=== PATIENT | male | born 1950 | race Caucasian/White ===

== ENCOUNTER 2016-10-23 15:39 | Observation (INO) | payer MEDICARE ==
[~2016-10-23] VITALS: Ht 188 cm; Wt 84.6 kg
--- NOTE | ~2016-10-23 | HEMODYNAMI ---
PATIENT:FADI GOMEZ MEDICAL RECORD: [id number] : 52 [id number] ADMISSION DATE: 10/23/16 Generatedon:10/24/201612:38 Patient name: FADI GOMEZ Patient #: [id number] SSN: : 1950 Date of study: 10/24/2016 Page: Of Hemodynamic Procedure Report Patient Data Patient Demographics Procedure consent was obtained First Name: FADI Gender: Male Last Name: PATRICIA : 1950 Middle Initial: M Age: 66 year(s) Patient #: [id number] Race: Additional ID: [id number] Contact details [address]: [address] [place] [address] State: [place] City: [place] Zip code: [address] Past Medical History Allergies: No known allergies Admission Admission Data Admission Date: 10/23/2016 Admission Time: 18:15 Admit Source: Other Insurance Payor: Medicare Room #: D.2114 Height (in.): 74 BSA: 2.13 (m2) Height (cm.): 187.96 BMI: 24.44 (kg/m2) Weight (lbs.): 190.39 Weight (kg.): 86.36 Lab Results Lab Result Date: 10/24/2016 Lab Result Time: 0:00 Biochemistry Name Units Result Min Max BUN mg/dl 24 --(----)-* 7 18 Creatinine mg/dl 0.7 --(*---)-- 0.6 1.3 CBC Name Units Result Min Max Hemoglobin g/dl 14.5 --(*---)-- 13.5 17.5 Procedure Procedure Types Cath Procedure Diagnostic Procedure [facility] w/Coronaries PCI Procedure Coronary Stent Initial Miscellaneous Procedures Moderate Sedation up to 15 minutes Procedure Description Procedure Date Procedure Date: 10/24/2016 Procedure Start Time: 12:23 Procedure End Time: 12:38 Procedure Staff Name Function Blaine Reaves MD Performing Physician Page Aguirre RT Scrub Silverio Wilkins RN Nurse Ania Hadley RT Monitor Procedure Data Cath Procedure Fluoroscopy Diagnostic fluoroscopy Total fluoroscopy Time: 2.6 time: 2.6 min min Diagnostic fluoroscopy Total fluoroscopy dose: 335 dose: 335 mGy mGy Contrast Material Contrast Material Type Amount (ml) Isovue 300 64 Entry Location Entry Primary Successful Side Size Upsize Upsize Entry Closure Mclaughlin ccessful Closure Location (Fr) 1 (Fr) 2 (Fr) Remarks Device Remarks Radial Right 6 Fr Mechanical artery Short Compression Estimated blood loss: 10 ml Diagnostic catheters Device Type Used For End Catheter Placement Diagnostic Terumo 5Fr LV Angiography Bradshaw 110cm catheter Diagnostic Terumo 5Fr Left Coronary Bradshaw 110cm catheter Angiography Diagnostic Terumo 5Fr Right Coronary Bradshaw 110cm catheter Angiography Procedure Complications No complications Procedure Medications Medication Administration Route Dosage Oxygen NC 2 l/min Heparin Flush Bag added to field 2 bags (1000units/500ml NS) 0.9% NaCl I.V. ml/hr Radial Cocktail added to field 1 syringe (Verapomil 2mg/Nitro 400mcg/Heparin 1500units) Fentanyl I.V. 50 mcg Versed I.V. 1 mg Fentanyl I.V. 50 mcg Versed I.V. 1 mg Radial Cocktail I.A. 1 syringe (Verapomil 2mg/Nitro 400mcg/Heparin 1500units) Heparin Bolus I.V. 4000 units Integrilin (Bolus I.V. 7.9 ml 2mg/ml) Integrilin (Bolus wasted 2.1 ml 2mg/ml) Plavix P.O. 600 mg Hemodynamics Rest BSA: 2.13 (m2) HGB: 14.5 (g/dl) O2 Consumption: Estimated: 230.15 (ml/min) O2 Co nsumption indexed: Estimated:108.05 (ml/min/m) Heart Rate: 47 (bpm) Snapshots Pre Cath Intra NCS Post Cath Vital Signs Time Heart Resp SPO2 NIBP (mmHg) Rhythm Pain Sedation Rate (ipm) (%) Status Level (bpm) 12:10:06 42 16 98 155/83(136) NSR 0 (11) 10(A) , No pain 12:14:14 52 20 99 144/89(105) NSR 0 (11) 10(A) , No pain 12:18:28 51 16 100 139/81(102) NSR 0 (11) 10(A) , No pain 12:22:42 50 17 97 130/78(96) NSR 0 (11) 9(A) , No pain 12:26:56 58 19 95 102/67(93) NSR 0 (11) 9(A) , No pain 12:31:00 56 19 94 120/67(84) NSR 0 (11) 9(A) , No pain 12:35:10 55 18 97 105/70(84) NSR 0 (11) 9(A) , No pain Medications Time Medication Route Dose Verified Delivered Reason Note s Effectiveness by by 12:14:49 Oxygen NC 2 l/min Silverio Sawyer Per physician Franky Wilkins RN RN 12:14:58 Heparin Flush added 2 bags Silverio Haquey used for Bag to Franky Wilkins RN procedure (1000units/500ml field RN NS) 12:15:05 0.9% NaCl I.V. ml/hr Silverio Sawyer Per physician Franky Wilkins RN RN 12:15:13 Radial Cocktail added 1 Silverio Haquey used for (Verapomil to syringe Franky Wilkins RN procedure 2mg/Nitro field RN 400mcg/Heparin 1500units) 12:17:01 Fentanyl I.V. 50 mcg Silverio Silverio for sedation Franky Wilkins RN RN 12:17:06 Versed I.V. 1 mg Silverio Silverio for sedation Franky Wilkins RN RN 12:23:38 Fentanyl I.V. 50 mcg Silverio Islverio for sedation Franky Wilkins RN RN 12:23:43 Versed I.V. 1 mg Silverio Silverio for sedation Franky Wilkins RN RN 12:25:00 Radial Cocktail I.A. 1 Silverio Ayonrey for (Verapomil syringe Franky Reaves MD vasodilation 2mg/Nitro RN 400mcg/Heparin 1500units) 12:31:47 Heparin Bolus I.V. 4000 Silverio Sawyer for units Franky Wilkins RN anticoagulation RN 12:32:01 Integrilin I.V. 7.9 ml Silverio Silverio for (Bolus 2mg/ml) Franky Wilkins RN antiplatelet RN therapy 12:32:23 Integrilin wasted 2.1 ml Silverio Sawyer for (Bolus 2mg/ml) Franky Wilkins RN antiplatelet RN therapy 12:37:35 Plavix P.O. 600 mg Silverio Sawyer for Franky Wilkins RN antiplatelet RN therapy Procedure Log Time Note 11:45:14 Silverio Wilkins RN sent for patient. Start room use. 11:52:15 Time tracking: Regular hours 11:52:18 Plan of Care:Hemodynamics will remain stable., Cardiac rhythm will remain stable., Comfort level will be maintained., Respiratory function will remain adequate., Patient/ family verbilizes understanding of procedure., Procedure tolerated without complication., Recovers from procedure without complications.. 12:02:23 Patient received from PCU to CCL 2 Alert and oriented. Tansferred to table in Supine position. 12:02:24 Warm blankets applied, and belkis hugger turned on for patient comfort. 12:02:24 Correct patient and procedure confirmed by team. 12:02:25 Signed procedure consent form obtained from patient. 12:02:26 ECG and BP/O2 sat monitors applied to patient. 12:02:27 Full Disclosure recording started 12:03:16 Admit Source: Other 12:03:29 Patient Height : 187.96 cm 12:03:42 Patient Weight : 86.36 kg 12:04:13 Insurance Payor : Medicare 12:05:27 Lab Result : Creatinine 0.7 mg/dl 12:05:27 Lab Result : BUN 24 mg/dl 12:05:27 Lab Result : Hemoglobin 14.5 g/dl 12:08:53 Baseline sample Acquired. 12:08:53 Vital chart was started 12:08:59 Rhythm: sinus bradycardia 12:09:15 H&P Date Dictated: 10/23/2016 ER History on chart.. 12:09:17 Pre-procedure instructions explained to patient. 12:09:17 Pre-op teaching completed and patient verbalized understanding. 12:09:25 Family in patients room. 12:09:29 Patient NPO since Breakfast. 12:09:35 Patient allergic to No known allergies 12:09:39 Is the patient allergic to Iodine/contrast media? No. 12:10:17 Is patient on blood thinner?No 12:10:19 Patient diabetic? No. 12:10:22 ----Pre-sedation anethsthesia assessment.---- 12:10:25 Previous problem with sedation/anesthesia? No ? 12:10:27 Snore? Yes 12:10:28 Sleep apnea? No 12:10:30 Deviated septum? No 12:10:31 Opens mouth fully? Yes 12:10:34 Sticks out tongue? Yes 12:10:38 Airway obstruction? No ? 12:10:41 Dentures? No ? 12:11:17 Pre procedure: right dorsailis pedis pulse 2+ Normal; easily identifiable; not easily obliterated 12:11:21 Modified Jesus Alberto's test Ulnar < 7 seconds 12:11:25 Patient pain scale 0/10 ?. 12:12:49 IV patent on arrival in right antecubital with 0.9% NaCl at [facility]. 12:14:30 Use device set Radial Dx 12:14:31 Acist Syringe opened to sterile field. 12:14:32 Medline Cath Pack opened to sterile field. 12:14:32 Bag Decanter opened to sterile field. 12:14:32 Terumo 6Fr Slender Glidesheath opened to sterile field. 12:14:33 St Freddy 260cm J .035 wire opened to sterile field. 12:14:33 Acist Hand Control opened to sterile field. 12:14:34 Acist Manifold opened to sterile field. 12:14:34 Tegaderm 4 x 4 opened to sterile field. 12:14:35 MBrace Wrist Support opened to sterile field. 12:14:49 Oxygen 2 l/min NC was administered by Silverio Wilkins RN; Per physician; 12:14:58 Heparin Flush Bag (1000units/500ml NS) 2 bags added to field was administered by Silverio Wilkins RN; used for procedure; 12:15:05 0.9% NaCl ml/hr I.V. was administered by Silverio Wilkins RN; Per physician; 12:15:13 Radial Cocktail (Verapomil 2mg/Nitro 400mcg/Heparin 1500units) 1 syringe added to field was administered by Silverio Wilkins RN; used for procedure; 12:16:14 Lab results completed and on chart. 12:16:17 Right Radial & Right Groin area was prepped with chlora-prep and draped in sterile fashion 12:16:18 Alarms reviewed by R. N. 12:16:18 Sharps counted by scrub and verified by R.N. 12:16:38 Final Timeout: patient, procedure, and site verified with staff and physician. All members of the team are in agreement. 12:16:42 Right Radial site verified by team. 12:16:49 Physical assessment completed. ASA score P 2 - A patient with mild systemic disease as per Blaine Reaves MD. 12:16:52 Sedation plan: IV Moderate Sedation Versed, Fentanyl 12:17:01 Fentanyl 50 mcg I.V. was administered by Silverio Wilkins RN; for sedation; 12:17:06 Versed 1 mg I.V. was administered by Silverio Wilkins RN; for sedation; 12:22:07 Procedure started. 12:23:10 Local anesthetic to right radial artery with Lidocaine 2% by Blaine Reaves MD.INITIAL ACCESS ONLY 12:23:32 A 6 Fr Short sheath was inserted into the Right Radial artery 12:23:38 Fentanyl 50 mcg I.V. was administered by Silverio Wilkins RN; for sedation; 12:23:43 Versed 1 mg I.V. was administered by Silverio Wilkins RN; for sedation; 12:24:58 A Diagnostic Terumo 5Fr Bradshaw 110cm catheter was advanced over the wire and used for LV Angiography. 12:25:00 Radial Cocktail (Verapomil 2mg/Nitro 400mcg/Heparin 1500units) 1 syringe I.A. was administered by Blaine Reaves MD; for vasodilation; 12:26:08 Terumo ANGLE 260cm glide wire opened to sterile field. 12:26:41 LV gram done using MCKEON 12:26:44 Injector settings: Ml/sec: 5., Volume: 15, 12:27:09 EF : 50 % 12:27:20 A Diagnostic Terumo 5Fr Bradshaw 110cm catheter was advanced over the wire and used for Left Coronary Angiography. 12:28:18 A Diagnostic Terumo 5Fr Bradshaw 110cm catheter was advanced over the wire and used for Right Coronary Angiography. 12:28:46 Catheter removed. 12:29:02 via680 BasixCompak Inflation Kit opened to sterile field. 12:29:03 Richardson Whisper J 300cm 0.014 guide wire opened to sterile field. 12:29:48 GeoIQtronic Launcher 6Fr AR 2.0 guide catheter opened to sterile field. 12:30:46 6 Fr AR 2.0 guide catheter was inserted over the wire 12:31:22 Whisper wire advanced. 12:31:47 Heparin Bolus 4000 units I.V. was administered by Silverio Wilkins RN; for anticoagulation; 12:32: Integrilin (Bolus 2mg/ml) 7.9 ml I.V. was administered by Silverio Wilkins RN; for antiplatelet therapy; 12:32:23 Integrilin (Bolus 2mg/ml) 2.1 ml wasted was administered by Silverio Wilkins RN; for antiplatelet therapy; 12:32: Inflation Number: 1 A Medtronic Resolute 3.5 X 12 stent was prepped and advanced across the Prox RCA. The stent was deployed at 15 CHUCKIE for 0:07 (min:sec). 12:32:26 Stent catheter was removed intact over wire. 12:32:27 Wire removed. 12:32:31 Guide catheter removed. 12:32:55 Sheath removed intact; hemostasis achieved with Mechanical Compression to the Right Radial artery. 12:32:57 Procedure ended.(Physican Out) 12:33:37 Fluoroscopy time 02.60 minutes. 12:33:40 Fluoroscopy dose: 335 mGy 12:33:40 Flurop Dose total: 335 12:33:48 Contrast amount:Isovue 300 64ml. 12:33:49 Sharps counted by scrub and verified by R.N. 12:33:51 TR band inflated with 12cc of air. 12:33:52 Insertion/operative site no bleeding no hematoma. 12:33:57 Post right radial artery:stable, clean and dry 12:33:58 Post Procedure Pulses reassessed and unchanged 12:34:04 Post-procedure physical assessment completed. ASA score P 2 - A patient with mild systemic disease as per Blaine Reaves MD. 12:34:06 Post procedure rhythm: unchanged. 12:34:14 Terumo TR Band Standard opened to sterile field. 12:34:17 Estimated blood loss: 10 ml 12:34:18 Post procedure instruction explained to patient.Patient verbalizes understanding. 12:34:18 Patient needs reinforcement of post procedure teaching. 12:34:31 Procedure type changed to Cath procedure, Diagnostic procedure, LHC, LHC w/Coronaries, PCI procedure, Coronary Stent Initial, Miscellaneous Procedures, Moderate Sedation up to 15 minutes 12:34:33 Procedure and supply charges have been captured, reviewed, submitted and are correct. 12:34:36 Procedure Complication : No complications 12:34:38 See physician's report for complete and final results. 12:37:35 Plavix 600 mg P.O. was administered by Silverio Wilkins RN; for antiplatelet therapy; 12:38:06 Vital chart was stopped 12:38:09 Report given to PCU. 12:38:12 Patient transfered to PCU with Bed. 12:38:14 Procedure ended. 12:38:14 Full Disclosure recording stopped 12:38:19 End room use (Document Last) Intervention Summary Intervention Notes Time ActionType Lesion and Equipment Action# Pressure Duration Attributes Used 12:32:23 Place stent Prox RCA Medtronic 1 15 00:07 Resolute 3.5 X 12 stent Device Usage Item Name Manufacture Quantity Catalog Hospital Part Current Minimal Lot# / Number Charge Number Stock Stock Serial# Code Acist Acist 1 06967 [id number] 780844 345473 20 Syringe Medical Systems Inc Medline Cardinal 1 [id number] 563089 12106 170897 5 Cath Pack Health Bag Microtek 1 2002S 687996 25700 927143 5 BAC ON TRAC. Terumo 6Fr Terumo 1 [id number] 717390 500251 755391 [address] Freddy 1 240975 648896 007800 373762 30 260cm J .035 wire Acist Hand Acist 1 70049 469452 409026 760308 5 Control Medical Systems Inc Acist Acist 1 47531 236281 994459 376541 5 Manifold Medical Systems Inc Tegaderm 4 3M 1 1626W 239059 738043 693853 5 x 4 MBrace Advanced 1 140-0250-00 648319 48266 038881 5 Wrist Vascular Support Dynamics Diagnostic Terumo 1 16-8230 698386 686604 074362 5 Terumo 5Fr Bradshaw 110cm catheter Terumo Terumo 1 [id number] 792498 086669 841807 5 ANGLE 260cm glide wire Merit Merit 1 YE6642 398801 627600 335288 15 [email or web address] Medical Inflation Kit Richardson Richardson 1 [id number] 452836 042265 822977 5 Whisper J Vascular 300cm 0.014 guide wire Medtronic Medtronic 1 [id number] 585149 04683 146041 1 Launcher 6Fr AR 2.0 guide catheter Medtronic Medtronic 1 [id number] 984378 683792 7 [id number] Resolute 3.5 X 12 stent Terumo TR Terumo 1 [id number] 842476 814891 485044 40 Band Standard Signature Audit [place] Stage Time Signature Unsigned Intra-Procedure 10/24/2016 Ania 12:38:31 PM Counts RT(R) Signatures Monitor : Ania Signature : Counts RT Date : Time : [id number] [place] [address]
--- NOTE | ~2016-10-23 | DS ---
PATIENT:FADI GOMEZ :52 MEDICAL RECORD: [id number] DISCHARGE SUMMARY ADMISSION DATE: 10/23/16 DISCHARGE DATE: DISCHARGE SUMMARY PROBLEM LIST: 1. Unstable angina. 2. Coronary artery disease. 3. Percutaneous transluminal coronary angioplasty stent right coronary artery, left anterior descending, and left circumflex this admission. 4. Hypertension. 5. Hyperlipidemia. HOSPITAL COURSE: Mr. Gomez presents with unstable angina. He was found to have three vessel coronary artery disease and underwent percutaneous transluminal coronary angioplasty stent of all three vessels. He had an uneventful postop course. PLAN: He discharged home with the addition of aspirin and Plavix to his medical regimen. He will follow up with [facility] in one month. ANTOLIN WILKERSON MD CC: [id number] DICTATION DATE: 10/25/16 1300 FIRE POT OPERATOR: BRODIE 10/25/16 1453 ADM IN [facility] [address] [id number]
--- NOTE | ~2016-10-23 | OP ---
PATIENT NAME: FADI GOMEZ MEDICAL RECORD: [id number] :52 LOCATION:D. D.2114 ADMISSION DATE:10/23/16 SURGEON: ANTOLIN WILKERSON MD OPERATION DATE: 10/25/16 PROCEDURES: 1. Percutaneous transluminal coronary angioplasty stent left anterior descending. 2. Percutaneous transluminal coronary angioplasty stent left circumflex. 3. Intravascular ultrasound. INDICATION: Unstable angina. PROCEDURE IN DETAIL: After informed consent was obtained and after detailed explanation of risks, benefits, as well as alternative therapies, the patient elected to proceed with angioplasty. The right femoral area was prepped and draped in a normal sterile fashion. The right femoral artery was cannulated via modified Seldinger technique with placement of 6-Belarusian sheath. All catheters exchanged through this sheath. FINDINGS: PTCA STENT OF THE LEFT ANTERIOR DESCENDING: The left anterior descending has 70% stenosis proximally confirmed by intravascular ultrasound. This was addressed with a 3.5 X 22 millimeter Integrity. The result was 0% residual stenosis. PTCA STENT OF THE LEFT CIRCUMFLEX: The left circumflex has 80% stenosis in the mid vessel. This was addressed with a 3.5 X 22 Integrity. The result was 0% residual stenosis throughout. OVERALL IMPRESSION: Successful percutaneous transluminal coronary angioplasty stent of the left anterior descending and left circumflex going from 70-80% initial stenosis to 0% residual stenosis. ANTOLIN WILKERSON MD CC: [id number] DICTATION DATE: 10/25/16 1200 WIRE ROPE SLING MAKER: BRODIE 10/25/16 1449 ADM IN [facility] [address] [id number]
--- NOTE | ~2016-10-23 | OP ---
PATIENT NAME: FADI GOMEZ MEDICAL RECORD: [id number] :52 LOCATION:D. D.2114 ADMISSION DATE:10/23/16 SURGEON: ANTOLIN WILKERSON MD OPERATION DATE: 10/24/16 PROCEDURES: 1. Percutaneous transluminal coronary angioplasty stent right coronary artery. 2. Left heart catheterization. 3. Selective coronary angiography. 4. Left ventriculogram. INDICATION: 1. Unstable angina. 2. Coronary artery disease. PROCEDURE IN DETAIL: After informed consent was obtained and after detailed explanation of risks, benefits, as well as alternative therapies, the patient elected to proceed with angiogram and angioplasty. The right radial area was prepped and draped in a normal sterile fashion. The right radial artery was cannulated via modified Seldinger technique with placement of 6-Latvian sheath. All catheters exchanged through this sheath. FINDINGS: The left ventriculogram was performed in standard 30 degree MCKEON view, reveals good cardiac wall motion throughout all segments. Overall ejection fraction 60%. SELECTIVE CORONARY ANGIOGRAPHY: 1. The left main is with no significant angiographic disease. 2. The left anterior descending has 80% stenosis in the mid vessel. 3. The left circumflex has 80% stenosis in the mid vessel. 4. The right coronary artery has 80% stenosis in the proximal vessel. PTCA STENT OF THE RIGHT CORONARY ARTERY: The stent used was a 3.5 X 12 millimeter Resolute. The result was 0% residual stenosis. OVERALL IMPRESSION: Successful percutaneous transluminal coronary angioplasty stent of the right coronary artery going from 80% initial stenosis to 0% residual stenosis. PLAN: Will plan for percutaneous transluminal coronary angioplasty stent of the left anterior descending and circumflex in the morning. ANTOLIN WILKERSON MD CC: [id number] DICTATION DATE: 10/24/16 1500 PROPOSAL MANAGER: DM 10/25/16 1218 ADM IN [facility] [address] [place] [address]
--- NOTE | ~2016-10-23 | HEMODYNAMI ---
PATIENT:FADI GOMEZ MEDICAL RECORD: [id number] : 52 [id number] ADMISSION DATE: 10/23/16 Generatedon:10/25/20168:17 Patient name: FADI GOMEZ Patient #: [id number] SSN: : 1950 Date of study: 10/25/2016 Page: Of Hemodynamic Procedure Report Patient Data Patient Demographics Procedure consent was obtained First Name: FADI Gender: Male Last Name: PATRICIA : 1950 Middle Initial: M Age: 66 year(s) Patient #: [id number] Race: Additional ID: [id number] Contact details Address: [address] [place] [address] State: [place] City: [place] Zip code: [address] Past Medical History Allergies: No known allergies Admission Admission Data Admission Date: 10/23/2016 Admission Time: 18:15 Admit Source: Other Insurance Payor: Medicare Room #: D.2114 Height (in.): 74 BSA: 2.13 (m2) Height (cm.): 187.96 BMI: 24.44 (kg/m2) Weight (lbs.): 190.39 Weight (kg.): 86.36 Lab Results Lab Result Date: 10/24/2016 Lab Result Time: 0:00 Biochemistry Name Units Result Min Max BUN mg/dl 24 --(----)-* 7 18 Creatinine mg/dl 0.7 --(*---)-- 0.6 1.3 CBC Name Units Result Min Max Hemoglobin g/dl 14.5 --(*---)-- 13.5 17.5 Procedure Procedure Types Cath Procedure Diagnostic Procedure FFR/IVUS Intra-Coronary IVUS Initial PCI Procedure Coronary Stent Initial x2 Miscellaneous Procedures Moderate Sedation up to 30 minutes Procedure Description Procedure Date Procedure Date: 10/25/2016 Procedure Start Time: 7:52 Procedure End Time: 8:16 Procedure Staff Name Function Blaine Reaves MD Performing Physician Ania Hadley RT Scrub Silverio Wilkins RN Nurse Emeterio Loza RT Monitor Procedure Data Cath Procedure Fluoroscopy Diagnostic fluoroscopy Total fluoroscopy Time: 4.7 time: 4.7 min min Diagnostic fluoroscopy Total fluoroscopy dose: 624 dose: 624 mGy mGy Contrast Material Contrast Material Type Amount (ml) Isovue 300 59 Entry Location Entry Primary Successful Side Size Upsize Upsize Entry Closure Succes sful Closure Location (Fr) 1 (Fr) 2 (Fr) Remarks Device Remarks Femoral Right 6 Fr Exoseal artery Short Estimated blood loss: 10 ml Procedure Complications No complications Procedure Medications Medication Administration Route Dosage Oxygen NC 2 l/min Heparin Flush Bag added to field 2 bags (1000units/500ml NS) 0.9% NaCl I.V. 100 ml/hr Fentanyl I.V. 50 mcg Versed I.V. 1 mg Fentanyl I.V. 50 mcg Versed I.V. 1 mg Heparin Bolus I.V. 4000 units Hemodynamics Rest BSA: 2.13 (m2) HGB: 14.5 (g/dl) O2 Consumption: Estimated: 236.2 (ml/min) O2 Con sumption indexed: Estimated:110.89 (ml/min/m) Heart Rate: 55 (bpm) Snapshots Pre Cath Intra NCS Post Cath Vital Signs Time Heart Resp SPO2 NIBP (mmHg) Rhythm Pain Sedation Rate (ipm) (%) Status Level (bpm) 7:37:00 55 19 98 151/67(83) NSR 0 (11) 10(A) , No pain 7:41:14 59 17 98 153/94(135) NSR 0 (11) 10(A) , No pain 7:45:30 55 16 100 155/92(113) NSR 0 (11) 10(A) , No pain 7:49:46 57 18 97 143/87(103) NSR 0 (11) 10(A) , No pain 7:54:51 60 19 96 137/85(100) NSR 0 (11) 9(A) , No pain 7:58:57 64 19 95 128/75(108) NSR 0 (11) 9(A) , No pain 8:03:09 69 18 96 130/76(102) NSR 0 (11) 9(A) , No pain 8:07:19 67 18 97 145/84(112) NSR 0 (11) 9(A) , No pain 8:11:31 62 12 96 130/85(105) NSR 0 (11) 9(A) , No pain 8:15:38 136/90(102) NSR 0 (11) 9(A) , No pain Medications Time Medication Route Dose Verified Delivered Reason Notes Effectiveness by by 7:48:38 Oxygen NC 2 Silverio Silverio Per physician l/min Franky Wilkins RN RN 7:48:47 Heparin Flush added 2 Silverio Silverio used for Bag to bags Franky Wilkins RN procedure (1000units/500ml field RN NS) 7:48:56 0.9% NaCl I.V. 100 Silverio Silverio Per physician ml/hr Franky Wilkins RN RN 7:49:05 Fentanyl I.V. 50 Silverio Silverio for sedation mcg Franky Wilkins RN RN 7:49:11 Versed I.V. 1 mg Silverio Silverio for sedation Franky Wilkins RN RN 7:52:57 Fentanyl I.V. 50 Silverio Silverio for sedation mcg Franky Wilkins RN RN 7:53:02 Versed I.V. 1 mg Silverio Silverio for sedation Franky Wilkins RN RN 7:54:15 Heparin Bolus I.V. 4000 Silverio Silverio for units Franky Wilkins RN anticoagulation inspector final assembly electrical Log Time Note 7:10:24 Time tracking: Regular hours 7:10:27 Plan of Care:Hemodynamics will remain stable., Cardiac rhythm will remain stable., Comfort level will be maintained., Respiratory function will remain adequate., Patient/ family verbilizes understanding of procedure., Procedure tolerated without complication., Recovers from procedure without complications.. 7:13:56 Silverio Wilkins RN sent for patient. Start room use. 7:29:11 Patient received from PCU to CCL 2 Alert and oriented. Tansferred to table in Supine position. 7:29:12 Warm blankets applied, and belkis hugger turned on for patient comfort. 7:29:12 Correct patient and procedure confirmed by team. 7:29:13 Signed procedure consent form obtained from patient. 7:29:14 ECG and BP/O2 sat monitors applied to patient. 7:29:17 Full Disclosure recording started 7:34:12 IV patent on arrival in right forearm with 0.9% NaCl at KVO. 7:34:14 IV right forearm D/C'd due to infiltration. 7:34:26 IV started by Silverio Wilkins RN inleft hand with a 22 gauge IV catheter with 0.9% NaCl at KVO. 7:35:46 Vital chart was started 7:36:03 Rhythm: sinus bradycardia 7:36:13 H&P Date Dictated: 10/24/2016 Within 30 days and on chart.. 7:36:14 Pre-procedure instructions explained to patient. 7:36:14 Pre-op teaching completed and patient verbalized understanding. 7:36:16 Family in patients room. 7:36:20 Patient NPO since Midnight. 7:36:30 Is the patient allergic to Iodine/contrast media? No. 7:36:31 Is patient on blood thinner?Yes 7:36:33 ACC The patient was administered the following blood thiners within the last 24 hours: ACCPlavix 7:36:35 Patient diabetic? No. 7:37:12 Previous problem with sedation/anesthesia? No ? 7:37:13 Snore? Yes 7:37:14 Sleep apnea? No 7:37:14 Deviated septum? Yes 7:37:15 Opens mouth fully? Yes 7:37:16 Sticks out tongue? No 7:37:18 Airway obstruction? No ? 7:37:19 Dentures? No ? 7:37:21 Pre procedure: right dorsailis pedis pulse 2+ Normal; easily identifiable; not easily obliterated 7:37:24 Patient pain scale 0/10 ?. 7:37:29 Lab results completed and on chart. 7:37:31 Right groin area was prepped with chlora-prep and draped in sterile fashion 7:37:32 Alarms reviewed by R. N. 7:37:32 Sharps counted by scrub and verified by R.N. 7:37:35 Use device set Femoral PCI 7:37:36 Acist Syringe opened to sterile field. 7:37:36 Acist Hand Control opened to sterile field. 7:37:37 Bag Decanter opened to sterile field. 7:37:37 Medline Cath Pack opened to sterile field. 7:37:37 Terumo 6Fr Billings[place] Sheath opened to sterile field. 7:37:38 St Freddy 260cm J .035 wire opened to sterile field. 7:37:38 Merit BasixCompak Inflation Kit opened to sterile field. 7:37:38 Acist Manifold opened to sterile field. 7:37:39 Tegaderm 4 x 4 opened to sterile field. 7:45:48 Baseline sample Acquired. 7:47:35 Physician arrived 7:47:36 --------ALL STOP TIME OUT------ 7:47:36 Final Timeout: patient, procedure, and site verified with staff and physician. All members of the team are in agreement. 7:47:37 Right groin site verified by team. 7:47:41 Physical assessment completed. ASA score P 2 - A patient with mild systemic disease as per Blaine Reaves MD. 7:47:45 Sedation plan: IV Moderate Sedation Versed, Fentanyl 7:48:17 22g IV Catheter opened to sterile field. 7:48:38 Oxygen 2 l/min NC was administered by Silverio Wilkins RN; Per physician; 7:48:47 Heparin Flush Bag (1000units/500ml NS) 2 bags added to field was administered by Silverio Wilkins RN; used for procedure; 7:48:56 0.9% NaCl 100 ml/hr I.V. was administered by Silverio Wilkins RN; Per physician; 7:49:05 Fentanyl 50 mcg I.V. was administered by Silvreio Wilkins RN; for sedation; 7:49:11 Versed 1 mg I.V. was administered by Silverio Wilkins RN; for sedation; 7:52:30 Procedure started. 7:52:33 Local anesthetic to right femoral artery with Lidocaine 2% by Blaine Reaves MD.INITIAL ACCESS ONLY 7:52:43 Cordis 6FR XBLAD 3.5 guide catheter opened to sterile field. 7:52:52 Zero performed for pressure channel P1 7:52:55 Zero performed for pressure channel P1 7:52:57 Fentanyl 50 mcg I.V. was administered by Silverio Wilkins RN; for sedation; 7:52:58 Zero performed for pressure channel P1 7:53:02 Versed 1 mg I.V. was administered by Silverio Wilkins RN; for sedation; 7:53:03 Zero performed for pressure channel P1 7:53:25 A 6 Fr Short sheath was inserted into the Right Femoral artery 7:53:34 6 Fr xblad 3.5 guide catheter was inserted over the wire 7:53:39 Guide Catheter removed. unable to cannulate vessel. 7:53:43 Cordis 6FR XBLAD 4.0 guide catheter opened to sterile field. 7:53:48 6 Fr xblad 4 guide catheter was inserted over the wire 7:54:15 Heparin Bolus 4000 units I.V. was administered by Silverio Wilkins RN; for anticoagulation; 7:55:53 whisper wire advanced. 7:55:54 Wire advanced across lesion. 7:56:03 [place] Morongo Eagleye IVUS Catheter opened to sterile field. 7:56:04 IVUS catheter advanced over wire. 7:56:13 IVUS pass to LAD lesion performed. 7:59:18 IVUS catheter removed over wire. 8:01:54 Inflation Number: 1 A Medtronic Integrity 3.5 X 22 stent was prepped and advanced across the Prox LAD. The stent was deployed at 13 CHUCKIE for 0:10 (min:sec). 8:02:08 Stent catheter was removed intact over wire. 8:02:21 Wire redirected to cx.. 8:02:41 Wire advanced across lesion. 8:04:56 Inflation Number: 1 A Medtronic Integrity 3.5 X 22 stent was prepped and advanced across the Mid CX. The stent was deployed at 13 CHUCKIE for 0:10 (min:sec). 8:05:20 Cordis 6Fr Exoseal opened to sterile field. 8:06:26 Stent catheter was removed intact over wire. 8:06:27 Wire removed. 8:06:27 Guide catheter removed. 8:06:33 Sheath removed intact; hemostasis achieved with Exoseal to the Right Femoral artery. 8:06:34 Procedure ended.(Physican Out) 8:11:44 Fluoroscopy time 04.70 minutes. 8:11:54 Flurop Dose total: 624 8:11:54 Fluoroscopy dose: 624 mGy 8:11:58 Contrast amount:Isovue 300 59ml. 8:12:00 Sharps counted by scrub and verified by R.N. 8:12:07 Insertion/operative site no bleeding no hematoma. 8:12:09 Post-op/insertion site Right Femoral artery dressed using a 4 x 4 and Tegaderm. 8:12:13 Post right femoral artery:stable, soft, clean and dry 8:12:14 Post Procedure Pulses reassessed and unchanged 8:12:16 Post-procedure physical assessment completed. ASA score P 2 - A patient with mild systemic disease as per Blaine Reaves MD. 8:12:18 Post procedure rhythm: unchanged. 8:12:20 Estimated blood loss: 10 ml 8:12:21 Post procedure instruction explained to patient.Patient verbalizes understanding. 8:12:22 Patient needs reinforcement of post procedure teaching. 8:13:52 Procedure type changed to Cath procedure, Diagnostic procedure, FFR/IVUS, Intra-Coronary IVUS Initial, PCI procedure, Coronary Stent Initial x2, Miscellaneous Procedures, Moderate Sedation up to 30 minutes 8:15:23 [place] Whisper J 300cm 0.014 guide wire opened to sterile field. 8:16:05 Procedure and supply charges have been captured, reviewed, submitted and are correct. 8:16:07 Procedure Complication : No complications 8:16:10 Vital chart was stopped 8:16:12 Report given to PCU. 8:16:15 Patient transfered to PCU with Stretcher. 8:16:16 Procedure ended. 8:16:16 Full Disclosure recording stopped 8:16:46 End room use (Document Last) Intervention Summary Intervention Notes Time ActionType Lesion and Equipment Action# Pressure Duration Attributes Used 8:01:54 Place stent Prox LAD Medtronic 1 13 00:10 Integrity 3.5 X 22 stent 8:04:56 Place stent Mid CX Medtronic 1 13 00:10 Integrity 3.5 X 22 stent Device Usage Item Name Manufacture Quantity Catalog Hospital Part Current Minimal Lot# / Number Charge Number Stock Stock Serial# Code Acist Acist 1 93774 627150 934592 855135 20 Syringe Medical Systems Inc Acist Hand Acist 1 44451 174597 106372 363314 5 Control Medical [employer] Inc Bag Microtek 1 2001S 489333 55643 640115 5 Quantance Inc. Medline Cardinal 1 [id number] 483904 83587 773918 5 Scirra Terumo 6Fr Terumo 1 [id number] 910484 116767 963350 [address] Freddy 1 307717 822275 273824 863569 30 260cm J .035 wire Merit Merit 1 [id number] 321163 995978 539744 15 [facility] Medical Inflation Kit Acist Acist 1 04871 592075 752317 342639 5 [employer] Tegaderm 4 3M 1 1626W 327840 970471 190780 5 x 4 22g IV B. Olea 1 9476471-41 419665 116464 013364 5 Catheter Cordis 6FR Cardinal 1 [id number] 909170 231873 043454 10 XBLAD 3.5 Health guide catheter Cordis 6FR Cardinal 1 [id number] 142046 587643 260599 3 XBLAD 4.0 Health guide catheter [place] 1 [id number] 340700 528087 068480 8 Morongo Eagleye IVUS Catheter Medtronic Medtronic 2 [id number] 794086 007904 0 [id number] [facility] [id number] 3.5 X 22 stent Cordis 6Fr Cardinal 1 EX600 702493 271130 662480 10 [facility] Richardson Richardson 1 [id number] 705910 358606 646918 5 isper J Vascular 300cm 0.014 guide wire Signature Audit [place] Stage Time Signature Unsigned Intra-Procedure 10/25/2016 Emeterio Loza 8:17:01 AM RT(R) Signatures Monitor : Emeterio Loza RT Signature : Date : Time : [place] [id number] [place] [address]
[2016-10-23 16:15] LABS: BASOPHILS 0.1 % (0-2); EOSINOPHILS 3.1 % (0-7); HEMATOCRIT 45.3 % (42.0-54.0); HEMOGLOBIN 15.4 g/dL (13.5-17.5); IMMATURE GRANULOCYTES 0.4 % (0-5); LYMPHOCYTES 28.8 % (15-50); MCH 30.1 pg (26.0-34.0); MCV 88.6 fL (80.0-100.0); MEAN PLATELET VOLUME 9.4 fL (7.4-10.4); MONOCYTES 9.7 % (2-11); NEUTROPHILS 57.9 % (40-80); PLATELET COUNT 192 10x3/uL (130-400); RBC 5.11 10x6/uL (4.20-6.10); RDW 13.3 % (11.5-14.5); WBC 8.3 10x3/uL (4.8-10.8)
[2016-10-23 16:31] LABS: ALBUMIN 3.9 g/dL (3.4-5.0); ALKALINE PHOSPHATASE 60 U/L (46-116); ALT (SGPT) 34 U/L (10-68); BILIRUBIN - TOTAL 0.37 mg/dL (0.2-1.3); CALC OSMOLALITY 287 mosm/kg (275-300); CALCIUM 8.9 mg/dL (8.5-10.1); CARBON DIOXIDE 26.1 mmol/L (21.0-32.0); CHLORIDE - SERUM 107 mmol/L (98-107); CREATININE - SERUM 0.7 mg/dL (0.6-1.3); GLUCOSE 102 mg/dL (74-106); PROTEIN - SERUM 7.3 g/dL (6.4-8.2); SODIUM 142 mmol/L (136-145); UREA NITROGEN 27 mg/dL (7-18); eGFR NON AFRICAN AMERICAN > 90 mL/min (90-120)
[2016-10-23 16:42] LABS: CHOL - HDL RATIO 4.4 ratio (2.3-4.9); CHOLESTEROL, TOTAL 196 mg/dL (0-200); CKMB 2.3 U/L (0.0-3.6); CREATINE KINASE 180 UL (21-232); HDL CHOLESTEROL 45 mg/dL (32-96); LDL CHOLESTEROL 98 mg/dL (0-100); LDL-HDL RATIO 2.2 ratio (1.5-3.5); TRIGLYCERIDE 268 mg/dL (30-200)
[2016-10-23 16:46] LABS: TROPONIN-I < 0.017 ng/mL (0.000-0.060)
--- NOTE | 2016-10-23 19:13 | NUR ---
RECEIVED FROM ER VIA WHEELCHAIR, IV-RA, PT DENIES ANY PAIN AT THIS TIME, IS ALERT AND OREINTATED, UP ABLIB, BED IS LOW, SRX2, CALL LIGHT IN REACH, WILL CONTINUE TO MONITOR
--- NOTE | 2016-10-23 19:38 | NUR ---
PLACED TELEMTRY ON PT, STARTED NS @75 IN RAC, WILL CONTINUE TO MONITOR
--- NOTE | 2016-10-24 03:44 | NUR ---
INSULATION CUPOLA OPERATOR AT BED SIDE TO OBTAIN VITALS, WILL CONT TO MONITOR.
[2016-10-24 04:19] VITALS: BP 126/63; Ht 188 cm; Wt 84.6 kg
[2016-10-24 04:51] VITALS: BP 126/63
[2016-10-24 09:07] VITALS: BP 120/80
[2016-10-24 09:43] LABS: BASOPHILS 0.1 % (0-2); EOSINOPHILS 3.6 % (0-7); HEMATOCRIT 43.5 % (42.0-54.0); HEMOGLOBIN 14.5 g/dL (13.5-17.5); IMMATURE GRANULOCYTES 0.4 % (0-5); LYMPHOCYTES 35.4 % (15-50); MCH 30.1 pg (26.0-34.0); MCHC 33.3 g/dL (31.0-37.0); MCV 90.4 fL (80.0-100.0); MEAN PLATELET VOLUME 9.8 fL (7.4-10.4); MONOCYTES 8.4 % (2-11); NEUTROPHILS 52.1 % (40-80); PLATELET COUNT 189 10x3/uL (130-400); RBC 4.81 10x6/uL (4.20-6.10); RDW 13.5 % (11.5-14.5); WBC 6.9 10x3/uL (4.8-10.8)
--- NOTE | 2016-10-24 09:57 | NUR ---
CONSENTS SIGNED FOR [facility]. TELEMETRY SR. WILL CONT. PLAN OF CARE.
[2016-10-24 10:15] LABS: CALC OSMOLALITY 288 mosm/kg (275-300); CALCIUM 8.5 mg/dL (8.5-10.1); CARBON DIOXIDE 24.6 mmol/L (21.0-32.0); CHLORIDE - SERUM 108 mmol/L (98-107); CREATININE - SERUM 0.7 mg/dL (0.6-1.3); GLUCOSE 91 mg/dL (74-106); POTASSIUM - SERUM 3.9 mmol/L (3.5-5.1); SODIUM 143 mmol/L (136-145); UREA NITROGEN 24 mg/dL (7-18); eGFR NON AFRICAN AMERICAN > 90 mL/min (90-120)
--- NOTE | 2016-10-24 12:00 | NUR ---
PRE-OPS GIVEN. TO DIRECTOR SALES BY BED.
[2016-10-24 12:08] VITALS: BP 105/69
--- NOTE | 2016-10-24 13:06 | NUR ---
BACK FROM ACQUISITION MANAGER. VS WNL. RIGHT WRIST STABLE WITH TR BAND INTACT. WILL MONITOR.
--- NOTE | 2016-10-24 14:20 | NUR ---
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 Discussed heart healthy eating with pts . Pt has been eating a lot of sugary foods over the last several months. Pt does not like nonstarchy vegetables and eats mostly meat and starch. Pt and take an enormous amount of diet supplements. Pts showed me their pill boxes with all the pills. Pts states pt is taking them because he does not eat vegetables. Pts is not sure exactly what they are taking. Advised pt to make sure they are not doubling up on supplements because they can be extremetly dangerous. RDN following.
[2016-10-24 16:32] VITALS: BP 123/77
--- NOTE | 2016-10-24 17:11 | NUR ---
TR BAND DCD WITHOUT BLEEDING OR HEMATOMA NOTED. WILL MONITOR.
--- NOTE | 2016-10-24 20:14 | NUR ---
RESUMED CARE OF PT, LYING IN BED WITH EYES CLOSED RESPIRATIONS EVEN AND UNLABORED ON 2LPM VIA NC. RIGTH WRIST C/D/I, PULSE PALPABLE. 47 SB ON TELEMETRY. RIGHT AC SALINE LOCKED. NO NEEDS VOICED AT THIS TIME, CALL LIGHT IN REACH. SEE NURSE ASSESSMENT. WILL CONTINUE TO MONITOR.
[2016-10-24 23:32] VITALS: BP 111/69
--- NOTE | 2016-10-25 01:33 | NUR ---
CALL LIGHT IN REACH, WILL CONTINUE WITH PLAN OF CARE.
[2016-10-25 06:24] VITALS: BP 150/60
--- NOTE | 2016-10-25 07:17 | NUR ---
PREOP MEDS GIVEN FOR FEED MIXER HELPER TO FEED MIXER HELPER VIA BED IN STABLE CONDITION AT THIS TIME
[2016-10-25 08:00] VITALS: BP 145/98
--- NOTE | 2016-10-25 08:25 | NUR ---
RECEIVED PT BACK FROM [employer] SALES AGENT VIA BED IN STABLE CONDITION PPPX4 VSS DRSG C/D/I TO RT GROIN NO SIGNS OF BLEEDING
[2016-10-25] MEDS ORDERED: PLAVIX75 MG PO (10:12)
[2016-10-25] MEDS ORDERED: ASPIRIN81 MG PO (10:13)
[2016-10-25 12:00] VITALS: BP 138/86
--- NOTE | 2016-10-25 14:05 | NUR ---
REVIEWED DISCHARGE INSTRUCTIONS PT STATES UNDERSTANDING COPY GIVEN DCD SALINE LOCK TO RAC WITH CATHETER TIP INTACT SITE FREE OF REDNESS OR EDEMA PT DISCHARGED HOME LEFT UNIT VIA W/C IN STABLE CONDITION WITH ALL PERSONAL BELONGINGS
== END 2016-10-25 14:05 | disposition home or self-care (01) ==
LOC: D.ER 15:39 → OBSVTIME 18:15 → D.M2 18:15
PROVIDERS: Emergency Medicine; ADMIT Internal Medicine Interventional Cardiology
DX: I25.110 Atherosclerotic heart disease of native coronary artery with unstable angina pectoris (principal); I10 Essential (primary) hypertension; E78.5 Hyperlipidemia, unspecified
CPT/HCPCS: 93458; 92928 ×2; C9600

== ENCOUNTER 2017-01-03 05:45 | Day surgery (SDC) | payer MEDICARE, OTHER ==
[~2017-01-03 05:45] MED LIST: ASPIRIN81 MG PO; PLAVIX75 MG PO
[2017-01-03 06:25] LABS: HEMATOCRIT 46.6 % (42.0-54.0); HEMOGLOBIN 15.8 g/dL (13.5-17.5); MCHC 33.9 g/dL (31.0-37.0); MCV 88.6 fL (80.0-100.0); MEAN PLATELET VOLUME 9.7 fL (7.4-10.4); RBC 5.26 10x6/uL (4.20-6.10); RDW 13.2 % (11.5-14.5); WBC 6.6 10x3/uL (4.8-10.8)
[2017-01-03] MEDS ORDERED: LOVENOX80 MG/0.8 SC (07:25)
[2017-01-03 07:26] VITALS: BP 133/90; BMI 27.8
--- NOTE | 2017-01-03 13:31 | NUR ---
1230 DISCHARGE INSTRUCTIONS COMPLETE. PRESCRIPTION FOR TYLENOL 3 GIVEN. PT HAS NO QUESTIONS OR CONCERNS. DISCHARGED WITH AND ESCORTED OUT BY VOLUNTEER.
--- NOTE | 2017-01-04 09:28 | OP ---
PATIENT NAME: FADI GOMEZ MEDICAL RECORD: [id number] :52 LOCATION:[facility] ADMISSION DATE: SURGEON: ESSENCE MILLER MD DATE OF OPERATION: 01/03/2017 SURGEON: Essence Miller MD ANESTHESIA: General anesthesia by Ellis Duggan CRNA PREOPERATIVE DIAGNOSIS: Phimosis. FINDINGS: Phimosis with scarring of the frenulum. PROCEDURES: Circumcision and release of the frenulum. BLOOD LOSS: Minimal. SPECIMEN: Penile foreskin. CLINICAL HISTORY: This is a 66-year-old male who had a history of recurrent balanitis with phimosis for over 2 months. There is no history of diabetes mellitus. He does have history of coronary artery disease and he recently had 3 coronary artery stents placed by Dr. Reaves. We had to wait until he was finished with his Plavix in order to perform this procedure. He is not allergic to any medications. He was given Ancef 1 gram IV security control center operator to the OR. DESCRIPTION OF PROCEDURE: The patient was given induction of general anesthesia in supine position. He was then shaved, prepped, and draped. A penile nerve block with 0.25% Marcaine without epinephrine was given at the base of the penis. This was placed on either side of the dorsal midline and then extended circumferentially along the base. A 2-0 nylon suture was placed through the glans penis and used for traction. The penis was pulled into full erectile length using the traction suture. A marking pen was then used to vaughn the mucosal portion of the foreskin about 5 mm proximal to the sargent of the glans. The foreskin was then placed back into its forward position and the cutaneous portion of the foreskin was marked at the corresponding location with a marking pen. The incisions were made using a #15 blade. The frenulum was tethered from scarring and a transverse incision was made across the scar tissue to release the frenulum. Metzenbaum scissors were then used to separate the dartos fascia from the undersurface of the foreskin specimen. Once the foreskin was completely freed, it was sent to pathology in formalin. We cauterized the dartos fascia at any bleeding points. The skin was reapproximated using simple interrupted 4-0 Vicryl. A Vaseline gauze dressing was then applied around the incision line. Kerlix was then wrapped around the penile dressing and this was split in half along its length and tied to itself in a little bow to maintain it. The patient can remove the dressing tomorrow. He is advised not to shower until 2 days from now. TRANSINT:[id number] Voice Confirmation ID: [id number] DOCUMENT ID: [id number] OPERATIVE REPORT [id number] FADI GOMEZ, ESSENCE Caban MD at 0928 CC: [id number] DICTATION DATE: 01/03/17 1035 SAW OFFBEARER: 01/03/17 1304 [facility] 01/03/17 [place] [id number] [place] [address]
== END 2017-01-03 12:30 | disposition home or self-care (01) ==
LOC: D.OPS 05:45
PROVIDERS: Anesthesiology
DX: N47.1 Phimosis (principal); I25.10 Atherosclerotic heart disease of native coronary artery without angina pectoris; Z95.5 Presence of coronary angioplasty implant and graft; Z01.812 Encounter for preprocedural laboratory examination